=== PATIENT | male | born 1945 | race Caucasian/White ===

== ENCOUNTER 2021-05-16 17:37 | Emergency (ER) | payer MEDICARE, SELFPAY ==
--- NOTE | ~2021-05-16 | CT_ITS ---
EXAMINATION: CT cervical spine wo con DATE: 05/16/2021 20:14 INDICATION: Neck pain. Head injury. TECHNIQUE: Computed tomography (CT) of the cervical spine was performed without intravenous contrast. Automated exposure control and iterative reconstruction technique were employed. The dose-length pro duct was 352.58 mGy-cm. COMPARISON: None FINDINGS: There is 5 degrees levocurvature of cervical spine. Vertebral body heights and intervertebr al disc heights are normal. The following disc levels are specifically discussed: C2-C3: There is no uncovertebral joint osteoarthritis. There is severe bilateral facet joint osteoart hritis. There is no neural foraminal stenosis. There is no central canal stenosis. C3-C4: There is mild bilateral uncovertebral joint osteoarthritis. There is severe bilateral facet angela int osteoarthritis. There is no neural foraminal stenosis. There is no central canal stenosis. C4-C5: There is no uncovertebral joint osteoarthritis. There is moderate right and mild left facet angela int osteoarthritis. There is no neural foraminal stenosis. There is no central canal stenosis. C5-C6: There is no uncovertebral joint osteoarthritis. There is mild right and moderate left facet angela int osteoarthritis. There is no neural foraminal stenosis. There is no central canal stenosis. C6-C7: There is no uncovertebral joint osteoarthritis. There is mild bilateral facet joint osteoarthr itis. There is no neural foraminal stenosis. There is no central canal stenosis. C7-T1: There is no uncovertebral joint osteoarthritis. There is mild bilateral facet joint osteoarthr itis. There is no neural foraminal stenosis. There is no central canal stenosis. IMPRESSION: 1. No fracture. 2. Mild cervical spondylosis. Reviewed, dictated and finalized at location A. LY RESOURCE MANAGEMENT PROFESSOR
--- NOTE | ~2021-05-16 | CT_ITS ---
EXAMINATION: CT brain wo con DATE: 05/16/2021 20:14 INDICATION: Headache. Neck pain. Head injury. TECHNIQUE: Computed tomography (CT) of the head was performed without intravenous contrast. The mA wa s adjusted according to patient size. Iterative reconstruction technique was employed. The dose-lengt h product was 605.33 mGy-cm. COMPARISON: None FINDINGS: There is no intracranial hemorrhage, acute infarction, or abnormal intracranial mass lesion . There are scattered areas of low attenuation in the cerebral white matter. The ventricles are gisele l in size. There is mild mucosal thickening in the paranasal sinuses. The mastoid air cells are gisele l. The orbits are normal. There is posterior scalp soft tissue swelling. IMPRESSION: 1. Mild nonspecific cerebral white matter disease, which likely represents chronic small vessel ische abdon disease. Reviewed, dictated and finalized at location A. LE WIRE INSERTER IMPRESSION: 1. Mild nonspecific cerebral white matter disease, which likely represents chrome polisher ivana small vessel ischemic disease.
[2021-05-16 17:47] VITALS: BP 169/70; PULSE 66; RESP 18; TEMP 36.3; O2SAT 98
--- NOTE | 2021-05-16 19:26 | PC.NURSE ---
Pt wearing c-collar in [place] to intake desk. Asks How can I sign myself out? This RN urged pt to stay. Pt reported he had ride waiting on him in parking lot. IV placed by EMS en route removed by this RN with catheter intact. gauze and tape dressing applied. no active bleeding. pt a/o x 4 with clear speech. Seen leaving ER wr [place] toward ER [address] without assistance.
--- NOTE | 2021-05-16 19:43 | PC.NURSE ---
Pt brought back to wr from parking area, as pt unable to locate his son. This RN called number listed on contact sheet for son, who reports he just left briefly to feed his dogs, but will be returning in approx. 5 minutes. He reports he will not take pt home but will speak with his dad when he gets back to ED. Pt returned to tracker board. Currently sitting in ED wr and does not want to stay, but son will not take him home.
--- NOTE | 2021-05-16 20:02 | PC.NURSE ---
Son left pt in ED wr, asked that staff call him when pt gets an ED bed assignment. Pt currently to imaging.
--- NOTE | 2021-05-16 20:15 | ED.FALL ---
HPI - Fall General Chief Complaint: Fall Stated Complaint: fall, head inj, vomited x1 Time Seen by Provider: 05/16/21 19:55 Source: patient History of Present Illness HPI Narrative: Patient presents after a ground-level fall. Patient reports he was picking up a package outside. Reports it was a large package and he tripped over it as he has some underlying peripheral neuropathy in his baseline unsteady gait. Reports he fell backwards onto his head denies any loss of consciousness reports his primary area of pain in his neck. Denies any focal numbness or weakness denies any change in vision denies use of any blood thinners. Does report one episode of emesis but is feeling improved. Review of Systems Review of Systems: CONSTITUTIONAL: Denies fever, chills, or sweats. EYES: Denies visual changes, redness, or discharge. ENT: Denies rhinorrhea, congestion, sore throat, or otalgia. CARDIOVASCULAR: Denies chest pain, palpitations, or edema. RESPIRATORY: Denies cough or dyspnea. GASTROINTESTINAL: Denies abdominal pain, nausea, vomiting, or diarrhea. GENITOURINARY: Denies dysuria or hematuria. SKIN: Denies rash or itching. MUSCULOSKELETAL: Denies back pain, joint pain, or myalgia. NEUROLOGIC: Denies headache, numbness, dizziness, or weakness. PSYCHIATRIC: Denies anxiety or depression. All systems reviewed & are unremarkable except as noted in HPI and below PMFSH Past Medical History Medical History (Updated 05/16/21 @ 20:30 by Ayush Woodruff MD) Neuropathy Social History Social History (Updated 05/16/21 @ 20:17 by Ayush Woodruff MD) Substance use: never Exam Narrative: GENERAL: Well-appearing, well-nourished, and in no acute distress. HEAD: Normocephalic, atraumatic. EYES: PERRLA and EOMI. ENT: Nares clear, no rhinorrhea or epistaxis. Mucous membranes moist, no fractured teeth NECK: Supple. No masses. Moderate diffuse neck pain CHEST: Clear to auscultation. No respiratory distress. No wheezes rales or rhonchi HEART: Regular rate and rhythm. No murmur heard. Normal peripheral pulses. ABDOMEN: Soft, nontender, nondistended, normal active bowel sounds. EXTREMITIES: Normal range of motion. No edema. SKIN: Warm, dry, no rash. NEURO: Cranial nerves II through XII are intact patient has 5 out of 5 strength in all extremities sensation intact to light touch in all extremities alert and oriented x3. PSYCH: Normal mood and affect. Course Reevaluation(s) Reevaluation #1: Patient is resting comfortably results reviewed with patient. Patient is comfortable with the outpatient plan. Date: 05/16/21 Time: 20:28 Vital Signs Vital signs: Vital Signs Temperature 36.3 C L 05/16/21 17:47 Pulse Rate 66 05/16/21 17:47 Respiratory Rate 18 05/16/21 17:47 Blood Pressure 169/70 H 05/16/21 17:47 Pulse Oximetry 98 05/16/21 17:47 Temperature 37.1 C 05/16/21 20:30 Pulse Rate 73 05/16/21 20:30 Respiratory Rate 16 05/16/21 20:30 Blood Pressure 133/55 L 05/16/21 20:30 Pulse Oximetry 100 05/16/21 20:30 MDM - Fall MDM Narrative Medical decision making narrative: H&P as above, vss, pt looks clinically well, exam with superficial abrasion, imaging without acute process, additional labs/img considered, symptomatic relief available as needed, on reevaluation pt continues to looks clinically well. Suspect mechanical fall and closed head injury, dns intracranial hemorrhage, fracture, cord compromise. plan to tx/monitor as op w/ pcm f/u findings/plan discussed with pt, pt agree/comfortable with plan, return precautions given Discharge Plan Discharge Clinical Impression: Acute neck pain Fall Qualifiers: Encounter type: initial encounter Qualified Code(s): W19.XXXA - Unspecified fall, initial encounter Closed head injury Qualifiers: Encounter type: initial encounter Qualified Code(s): S09.90XA - Unspecified injury of head, initial encounter Patient Disposition: Home, Self-Care Condition: Improved I
[2021-05-16 20:30] VITALS: BP 133/55; PULSE 73; RESP 16; TEMP 37.1; O2SAT 100
--- NOTE | 2021-05-16 20:45 | PC.NURSE ---
C-collar removed by Dr. Woodruff. All d/c instructions explained to pt by ED MD. This RN called pt's son, who arrived from waiting in parking lot. This RN explained negative imaging results to pt's son, and pt escorted to family vehicle in without difficulty.
== END 2021-05-16 20:45 | disposition home or self-care (01) ==
PROVIDERS: Emergency Provider Emergency Medicine; PCP Family Medicine
DX: S09.90XA Unspecified injury of head, initial encounter (principal); M54.2 Cervicalgia; G62.9 Polyneuropathy, unspecified; W01.0XXA Fall on same level from slipping, tripping and stumbling without subsequent striking against object, initial encounter
CPT/HCPCS: 70450; 72125; 99284; L0140

== ENCOUNTER 2022-03-28 16:59 | Outpatient (CLI) | payer MEDICARE, SELFPAY ==
--- NOTE | ~2022-03-28 | CT_ITS ---
EXAMINATION: CT brain without and with contrast, CT orbit bilateral with contrast DATE: 03/28/2022 18:07 (accession [id number]), 03/28/2022 18:04 (accession [id number]) INDICATION: Papilledema. Vision loss. TECHNIQUE: Computed tomography (CT) of the head was performed without intravenous contrast. CT of the head and orbits was performed with 100 mL Omnipaque 350 intravenous contrast. Automated exposure con trol and iterative reconstruction technique were employed. The dose-length product was 605.33 (access ion [id number]), 128.94 (accession [id number]) mGy-cm. COMPARISON: CT brain 05/16/2021. FINDINGS: BRAIN: No acute intracranial hemorrhage or extra-axial fluid collection. No hydrocephalus, mass, or herniation. No abnormal enhancing lesion No acute ischemic infarct detected. Unremarkable dural venous sinus attenuation. No acute osseous abnormality. Small retention cyst or polyp in a poorly pneumatized inferior frontal sinus, the remaining visualize d paranasal sinuses and mastoid air cells are clear. Mild atrophy and chronic white matter change. Atherosclerotic intracranial calcification. ORBITS: Soft Tissues: No significant superficial soft tissue swelling. Facial bones: No evidence of an acute fracture in the visualized facial bones. Orbits: No evidence of an acute fracture. Bilateral lens replacements. The globes are intact. The s oft tissue planes of the orbits are maintained. Paranasal Sinuses: Poorly pneumatized frontal sinuses. Small frontal retention cyst or polyp. Foreign Bodies: No evidence of radiopaque foreign bodies. IMPRESSION: No acute intracranial process. Bilateral lens replacements, otherwise normal CT orbit findings. Reviewed, dictated and finalized at location K. IMPRESSION: No acute intracranial process. Bilateral lens replacements, otherwise normal CT orbit findings.
[2022-03-28 17:51] LABS: Estimated Glomerular Filt Rate 42
== END 2022-03-28 17:00 | disposition home or self-care (01) ==
PROVIDERS: PCP Family Medicine; Visit Provider Ophthalmology
DX: H47.10 Unspecified papilledema (principal)
CPT/HCPCS: 70470; 70481; Q9967

== ENCOUNTER 2022-03-29 11:24 | Outpatient (CLI) | payer MEDICARE, SELFPAY ==
[2022-03-29 12:14] LABS: Erythrocyte Sedimentation Rate 21 mm/hr (0-20)
[2022-03-29 12:17] LABS: CRP < 0.5 mg/dL (<1.0)
== END 2022-03-29 11:25 | disposition home or self-care (01) ==
PROVIDERS: PCP Family Medicine; Visit Provider Ophthalmology
DX: H47.10 Unspecified papilledema (principal)
CPT/HCPCS: 36415; 85652; 86140

== ENCOUNTER 2022-06-10 17:22 | Inpatient (IN) | payer MEDICARE, SELFPAY ==
[2022-06-10] VITALS (10 sets, daily range): BP systolic 106–139; BP diastolic 49–77; PULSE 77–114; RESP 16–39; TEMP 36.3–36.4; O2SAT 93–100; BMI 25.0
--- NOTE | ~2022-06-10 | XR_ITS ---
EXAMINATION: XR chest 2V DATE: 06/10/2022 18:10 INDICATION: Shortness of breath. TECHNIQUE: Frontal and lateral views of the chest were obtained. COMPARISON: None. FINDINGS: There are airspace opacities in the mid and lower lung zones. No pleural effusion or pneumo thorax. The heart size is normal. IMPRESSION: 1. Airspace opacities in the mid and lower lung zones, consistent with pneumonia versus pulmonary herbert ma. Reviewed, dictated and finalized at location A. STOS HAZARD ABATEMENT WORKER IMPRESSION: 1. Airspace opacities in the mid and lower lung zones, consistent with pneumoni a versus pulmonary edema.
--- NOTE | ~2022-06-10 | US_ITS ---
EXAMINATION: US renal BI DATE: 06/12/2022 15:01 INDICATION: Acute kidney injury rule out hydronephrosis TECHNIQUE: Multiple grayscale and Doppler ultrasound images of the kidneys were obtained. COMPARISON: None. FINDINGS: The right kidney measures 13.1 x 6.2 x 6.1 cm. The left kidney measures 12.8 x 5.8 x 6.5 cm. The kidn eys demonstrate normal parenchymal echogenicity. Mild cortical thinning and scarring. There is no hyd ronephrosis. The bladder is decompressed by a Enriquez catheter. IMPRESSION: Mild bilateral cortical thinning and scarring, otherwise unremarkable renal sonogram findings. Reviewed, dictated and finalized at location K. T FURNACE CHECKER IMPRESSION: Mild bilateral cortical thinning and scarring, otherwise unremarkable renal son ogram findings.
--- NOTE | ~2022-06-10 | CT_ITS ---
EXAMINATION: CT brain wo con DATE: 06/11/2022 09:37 INDICATION: Encephalopathy. TECHNIQUE: Computed tomography (CT) of the head was performed without intravenous contrast. The mA wa s adjusted according to patient size. Iterative reconstruction technique was employed. The dose-lengt h product was 605.33 mGy-cm. COMPARISON: Head CT 03/28/2022 FINDINGS: There are scattered areas of low attenuation in the cerebral white matter. There is no intr acranial hemorrhage, acute infarction, or abnormal intracranial mass lesion. The ventricles are gisele l in size. There is mucosal thickening in the paranasal sinuses. There are likely changes of ocular l ens replacement surgeries. The mastoid air cells are normal. IMPRESSION: 1. Stable mild nonspecific cerebral white matter disease, which likely represents chronic small vesse l ischemic disease. Reviewed, dictated and finalized at location A. QUALITY IMPRESSION: 1. Stable mild nonspecific cerebral white matter disease, which likely represen ts chronic small vessel ischemic disease.
--- NOTE | ~2022-06-10 | CT_ITS ---
EXAMINATION: CTA chest PE protocol DATE: 06/10/2022 20:32 INDICATION: Shortness of breath. TECHNIQUE: Computed tomography angiography (CTA) of the chest was performed with 100 mL Omnipaque-350 intravenous contrast timed to evaluate the pulmonary arteries. Coronal maximum intensity projection 3D-reconstructions were created by the technologist. Automated exposure control and iterative reconst ruction technique were employed. The dose-length product was 337.91 mGy-cm. COMPARISON: Chest 2 views 06/10/2022 FINDINGS: There are small pleural effusions. There is diffuse smooth septal thickening in the lungs. There are patchy groundglass opacities in all lobes. There is left ventricular enlargement of the hea rt. There are coronary artery calcifications. No pericardial effusion. There is no pulmonary embolus. There is mild mediastinal and bilateral hilar lymphadenopathy. There are bridging endplate osteophyt es at multiple levels in the spine, consistent with diffuse idiopathic skeletal hyperostosis (DISH). IMPRESSION: 1. No pulmonary embolus. 2. Diffuse lung disease, consistent with moderate pulmonary edema without or with superimposed pneumo leanna. 3. Small pleural effusions. 4. Mild mediastinal and bilateral hilar lymphadenopathy, likely reactive. 5. Left ventricular enlargement of the heart. Reviewed, dictated and finalized at location A. LAY AND BANNER DESIGNER IMPRESSION: 1. No pulmonary embolus. 2. Diffuse lung disease, consistent with moderate pulmonary edema without or wi th superimposed pneumonia. 3. Small pleural effusions. 4. Mild mediastinal and bilateral hilar lymphadenopathy, likely reactive. 5. Left ventricular enlargement of the heart.
--- NOTE | ~2022-06-10 | XR_ITS ---
EXAMINATION: XR chest 1V portable DATE: 06/12/2022 08:07 INDICATION: Pneumonia. TECHNIQUE: A single frontal view of the chest was obtained. COMPARISON: Chest 2 views 06/10/2022, chest CT 06/10/2022 FINDINGS: There are interstitial and airspace opacities in all lung zones with a lower lung predomina nce. No pleural effusion or pneumothorax. The heart size is normal. IMPRESSION: 1. Worsened diffuse lung disease, likely moderate pulmonary edema. Reviewed, dictated and finalized at location A. OPERATIONS MANAGER
--- NOTE | 2022-06-10 17:33 | ECG_ITS ---
Measurements Intervals [place] Rate: 78 P: 55 ND: 151 QRS: -4 QRSD: 78 T: 129 QT: 358 QTc: 408 Interpretive Statements REDUCED ECG QUALITY BECAUSE OF MOTION ARTIFACT SINUS RHYTHM CANNOT RULE OUT PREVIOUS ANTEROSEPTAL NM NONSPECIFIC T-WAVE ABNORMALITY ABNORMAL ECG NO PREVIOUS ECG AVAILABLE FOR COMPARISON Electronically Signed On 06-11-2022 9:42:13 MANAGER CLINICAL PHARMACY by Chandrakant Conway M.D.
[2022-06-10 17:38] LABS: Glucose Point of Care 456 mg/dl (65-105)
[2022-06-10 17:52] LABS: Basophils Percent Auto 0.1 % (0.2-1.2); Hematocrit 36.4 % (42.0-52.0); Immature Granulocyte Absolute 0.05 K/mm3 (0.00-0.031); Immature Granulocyte Percent A 0.7 % (0-0.5); Lymphocytes Absolute Auto 0.74 K/mm3 (0.9-3.2); Lymphocytes Percent Auto 10.1 % (18.3-44.2); Mean Corpuscular Hemoglobin 28.2 pg (26-34); Mean Corpuscular Volume 85.6 fl (80-100); Mean Platelet Volume 11.8 fl (7.4-10.4); Monocytes Percent Auto 13.8 % (2.6-8.5); Neutrophils Absolute Auto 5.5 K/mm3 (1.3-6.7); Neutrophils Percent Auto 75.3 % (45.5-73.1); Platelet Count Result 213 k/mm3 (150-375); Red Blood Count 4.25 M/mm3 (4.6-6.20); Red Cell Distribution Width 13.4 % (11.5-14.5); White Blood Count 7.3 K/mm3 (4.5-10.0)
[2022-06-10 18:06] LABS: Alanine Aminotransferase 35 U/L (6-50); Alkaline Phosphatase 84 U/L (38-126); Anion Gap 21 mmol/L (8-16); Aspartate Amino Transferase 58 U/L (17-59); Bilirubin,Total 0.7 mg/dL (0.2-1.3); Blood Urea Nitrogen 62 mg/dL (9-20); Calcium 8.5 mg/dL (8.4-10.2); Carbon Dioxide 15 mmol/L (22-30); Chloride 94 mmol/L (98-107); Estimated CRCL calculation 43 ml/min; Estimated Glomerular Filt Rate 31; Glucose 528 mg/dL (65-110); Potassium 5.3 mmol/L (3.4-5.0); Sodium 130 mmol/L (137-145)
[2022-06-10 18:15] LABS: Alveolar/Arterial O2 Gradient 50.9 mmHg; Base Excess ABG -11.4 mEq/l (+/-2.0); Carboxyhemoglobin 0.4 % THb (0-2.0); Fractional Inspired Oxygen 21 %; HCO3 ABG 11.8 mEq/l (22.0-26.0); Methemoglobin ABG 0.2 %THb (0-1.5); Oxygen Content ABG 16.4 %vol (16.0-22.0); Oxygen Saturation ABG 94.7 % (95.0-100.0); Oxyhemoglobin 92.8 % THb (90.0-100.0); PO2 ABG 73.4 mmHg (80.0-100.0); Reduced Hemoglobin 6.6 %THb (0-5.0); Total Hemoglobin 12.5 g/dL (12.0-18.0); pH ABG 7.365 (7.350-7.450)
[2022-06-10 18:17] LABS: Device ROOM AIR; Modified Allen's Test Pass; PCO2 ABG 21.2 mmHg (35.0-45.0); Site Drawn LEFT RADIAL
[2022-06-10 18:18] LABS: Magnesium 2.3 mg/dL (1.6-2.3); Phosphorus 4.9 mg/dL (2.5-4.5)
--- NOTE | 2022-06-10 18:21 | ED.WEAKNESS ---
HPI - Weakness General Chief complaint: Weakness <Meghan Pak PA-C - Last Filed: 06/10/22 21:55> Stated complaint: COVID+, SOB <RICK Booker Last Filed: 06/10/22 21:55> Time Seen by Provider: 06/10/22 17:53 <Meghan Pak PA-C - Last Filed: 06/10/22 21:55> Source: patient <RICK Booker Last Filed: 06/10/22 21:55> Mode of arrival: wheelchair <RICK Booker Last Filed: 06/10/22 21:55> Limitations: other (Poor historian) <RICK Booker Last Filed: 06/10/22 21:55> History of Present Illness HPI Narrative: This is a 77-year-old male that presents to the emergency department for generalized weakness. Reports he was diagnosed with COVID 3 days ago. He has had fever, cough, congestion, and sore throat. His family brought him in for evaluation today due to increased lethargy and decreased p.o. intake. He reports he has not had a COVID-vaccine. He was not started on any medications for COVID. Reports shortness of breath. Denies chest pain or lower extremity edema. <Meghan Pak PA-C - Last Filed: 06/10/22 21:55> Related Data Allergies/Adverse reactions: Allergies Allergy/AdvReac Type Severity Reaction Status Date / Time No Known Allergies Allergy Verified 06/10/22 18:27 <Meghan Pak PA-C - Last Filed: 06/10/22 21:55> Review of Systems Review of Systems: CONSTITUTIONAL: Denies fever EYES: Denies redness, or discharge. ENT: Reports rhinorrhea, congestion, sore throat CARDIOVASCULAR: Denies chest pain, or edema. RESPIRATORY: Reports cough and dyspnea. GASTROINTESTINAL: Denies nausea, vomiting, or diarrhea. MUSCULOSKELETAL: Reports myalgia. NEUROLOGIC: Reports generalized weakness. <RICK Booker Last Filed: 06/10/22 21:55> All systems reviewed & are unremarkable except as noted in HPI and below <Meghan Pak PA-C - Last Filed: 06/10/22 21:55> [facility] Past Medical History Medical History: Medical History (Updated 06/10/22 @ 21:44 by Meghan Pak PA-C) History of diabetes mellitus History of hyperlipidemia Neuropathy <Meghan Pak PA-C - Last Filed: 06/10/22 21:55> Social History Social History: Social History (Updated 05/16/21 @ 20:17 by Ayush Woodruff MD) Substance use: never <Meghan Pak PA-C - Last Filed: 06/10/22 21:55> Exam Narrative: GENERAL: Ill-appearing, tachypneic HEAD: Normocephalic, atraumatic. EYES: PERRLA and EOMI. ENT: Nares clear, no rhinorrhea or epistaxis. Mucous membranes dry. Oropharynx without tonsillar hypertrophy exudate or other lesions. NECK: Supple. No adenopathy or masses. CHEST: Tachypneic. Rales at the lung bases. No respiratory distress. No wheezes or rhonchi HEART: Regular rate and rhythm. No murmur heard. Normal peripheral pulses. ABDOMEN: Soft, nontender, nondistended, normal active bowel sounds. EXTREMITIES: Normal range of motion. No edema. SKIN: Warm, dry, no rash. NEURO: No focal deficits. Alert and oriented x3. PSYCH: Normal mood and affect <Meghan Pak PA-C - Last Filed: 06/10/22 21:55> Course SENIOR MARKETING COORDINATOR/PA Physician Supervision For this patient encounter, I reviewed the SENIOR MARKETING COORDINATOR or PA documentation, treatment plan, and medical decision making; and I had [id number] time with this patient. GENERAL: Ill-appearing, well-nourished, and in no acute distress. HEAD: Normocephalic, atraumatic. ENT: Mucous membranes moist. CHEST: Clear to auscultation. No respiratory distress. Frequent coughing. HEART: Regular rate and rhythm. Normal peripheral pulses. ABDOMEN: Soft, nontender, nondistended. EXTREMITIES: Normal range of motion. No edema. SKIN: Warm, dry, no rash. NEURO: Alert and oriented x3. PSYCH: Normal mood and affect. Admit to hospitalist ICU for DKA and COVID. Will start on insulin drip. <Kolby King MD - Last Filed: 06/10/22 21:53> Consultations Consultation #1: Spoke with Dr. Snider about teoen
[2022-06-10 18:24] LABS: INR 1.1; Partial Thromboplastin Time 29.6 SECONDS (22.3-36.8); Prothrombin Time 13.8 Seconds (11.1-14.7)
[2022-06-10] MEDS: INSULIN HUMAN REGULAR (*BKC) 100 UNITS/ML 12 UNITS IV PUSH (18:29)
[2022-06-10] MEDS: SODIUM CHLORIDE 0.9% IV 1,000 ML 999 ML IV CONT (18:29)
[2022-06-10 18:51] LABS: Beta-Hydroxybutyrate/Acetoacetate 8.13 mmol/L (0.02-0.27)
[2022-06-10 19:19] LABS: Glucose Point of Care 378 mg/dl (65-105)
[2022-06-10 19:37] LABS: Hemoglobin A1C 11.8 % (<5.7)
[2022-06-10 19:38] LABS: CRP 8.7 mg/dL (<1.0)
[2022-06-10 19:46] LABS: NT Pro B Type Natriuretic Pept > 35000 pg/mL (5-100)
[2022-06-10 19:51] LABS: Lactic Acid Reflex 2.4 mmol/L (0.7-2.0)
[2022-06-10 20:02] LABS: Influenza A QL RT-PCR Negative (Negative); Influenza B QL RT-PCR Negative (Negative); SARS-CoV-2 RNA PCR Positive
[2022-06-10 20:06] LABS: D Dimer 1.94 ug/mL (<0.48)
[2022-06-10 20:16] LABS: Add Urine Microscopic? YES; Appearance Urine Clear (Clear); Bilirubin Urine 1+ (Negative); Blood Urine 1+ (Negative); Color Urine Yellow (Yellow); Glucose Urine UA 3+ mg/dL (Negative); Ketones Urine 1+ mg/dL (Negative); Leukocyte Esterase Ur Negative LEU/UL (Negative); Nitrate Urine Negative (Negative); Protein Urine 2+ mg/dL (Negative); Specific Grav Ur 1.025 (1.001-1.035); Urobilinogen Urine 0.2 mg/dL (<2.0)
[2022-06-10 20:25] LABS: Squamous Epithelial Cell Urine Rare /hpf (Few); WBC Urine 0-3 /hpf
[2022-06-10 20:58] LABS: Glucose Point of Care 297 mg/dl (65-105)
--- NOTE | 2022-06-10 21:07 | PM.IMHP ---
H&P: HPI History of Present Illness Date/Time: 06/10/22 21:07 Chief Complaint: Weakness Narrative: Patient is a 77-year-old male with past medical history of type 2 diabetes on metformin who presents to ED with complaints of generalized weakness after being diagnosed with COVID-19 3 days ago. Patient lives with his in is fairly independent. He has very poor health literacy and does not know about his medications or medical conditions. All he knows is he takes metformin for diabetes. He was not vaccinated for COVID-19. He is unable to discuss his parents medical conditions as well. History is very limited. We discussed code status and patient expressed wishes for do not resuscitate/do not intubate. In the ED: Patient is found to be in DKA glucose 528, anion gap 21, potassium 5.3, sodium 130. COVID-19 positive on PCR. BNP was elevated greater than 35,000. Patient denies any history of heart failure. Patient had O2 saturation 95% on room air. With patient being in DKA he was started on insulin drip given 12 units of regular insulin, 1 L fluid bolus. He will be admitted to the ICU for observation for DKA secondary to COVID-19. Review of Systems Review of Systems: Constitutional: No Fever, No Chills, No Night Sweats, endorses generalized weakness ENT/Mouth: No Hearing Changes, No Ear Pain, No Nasal Congestion, No Sinus Pain, No Hoarseness, No sore throat, No Rhinorrhea, No Swallowing Difficulty Eyes: No Eye Pain, No Redness, No Vision Changes Cardiovascular: No Chest Pain, No Palpitations, No Dyspnea on Exertion, No Orthopnea, No Claudication, No Edema Respiratory: Endorses dry cough Gastrointestinal: No Nausea, No Vomiting, No Diarrhea, No Constipation, No Abdominal Pain, No Heartburn, No Hematochezia, No Melena Genitourinary: No Dysuria, No Urinary Frequency, No Hematuria, No Urinary Incontinence, No Urgency Musculoskeletal: No Arthralgias, No Myalgias, No Joint Swelling, No Joint Stiffness, No Back Pain Skin: No Skin Lesions, No Pruritis, No Hair Changes Neuro: No Weakness, No Numbness, No Paresthesias, No Loss of Consciousness, No Syncope, No Dizziness, No Headache Psych: No Anxiety/Panic, No Depression, No Insomnia Heme: No Bruising, No Bleeding Lymph: No Adenopathy Endocrine: No Polyuria, No Polydipsia, No Temperature Intolerance [facility] Past Medical History Medical History History of diabetes mellitus History of hyperlipidemia Neuropathy Social History Social History (Updated 06/10/22 @ 22:28 by Damián Ureña DO) Social History: Lives with Smoking status: Never smoker Alcohol intake: never Substance use: never Meds Home Medications and Allergies Home Medications Medication Instructions Recorded Confirmed Type citalopram 40 mg tablet 40 mg PO DAILY 06/10/22 06/10/22 History gabapentin 800 mg tablet 800 mg PO TID 06/10/22 06/10/22 History glipizide 10 mg tablet 10 mg PO BID 06/10/22 06/10/22 History metformin 1,000 mg tablet 1,000 mg PO BID 06/10/22 06/10/22 History simvastatin 80 mg tablet 80 mg PO DAILY 06/10/22 06/10/22 History Allergies Allergy/AdvReac Type Severity Reaction Status Date / Time No Known Allergies Allergy Verified 06/10/22 18:27 Vital Signs Vital Signs - 24 hr 06/10/22 17:27 06/10/22 18:38 06/10/22 18:25 Temperature 36.3 C L Pulse Rate 79 83 77 Respiratory Rate 16 34 H Blood Pressure 139/61 Pulse Oximetry 100 98 Oxygen Delivery Room Air 06/10/22 18:30 06/10/22 18:34 06/10/22 18:45 Temperature Pulse Rate 78 77 114 H Respiratory Rate 39 H 38 H 36 H Blood Pressure 136/66 Pulse Oximetry 98 98 93 Oxygen Delivery 06/10/22 18:46 Temperature Pulse Rate 89 Respiratory Rate 35 H Blood Pressure 120/77 Pulse Oximetry 95 Oxygen Delivery Exam Narrative: - GENERAL: Pleasant elderly male in no acute distress. - EYES: EOMI. Anicteric. - HENT: Dry oral
[2022-06-10] MEDS: INSULIN HUMAN REGULAR (*BKC) 100 UNITS in SODIUM CHLORIDE 0.9% IV 99 ML IV CONT (21:37)
[2022-06-10 21:54] LABS: Anion Gap 17 mmol/L (8-16); Blood Urea Nitrogen 62 mg/dL (9-20); Calcium 7.7 mg/dL (8.4-10.2); Carbon Dioxide 15 mmol/L (22-30); Chloride 97 mmol/L (98-107); Estimated CRCL calculation 47 ml/min; Estimated Glomerular Filt Rate 35; Glucose 276 mg/dL (65-110); Potassium 4.4 mmol/L (3.4-5.0); Sodium 129 mmol/L (137-145)
[2022-06-10] MEDS: SODIUM CHLORIDE 0.9% IV 1,000 ML 100 ML IV CONT (22:19)
--- NOTE | 2022-06-10 22:20 | ADMGEN ---
This patient, José Edwards, was admitted to Intensive Care Unit-11. Patient/family oriented to hospital policies and general routines including ID bracelet, bed and alarms, visiting hours, pain management, procedures, bathroom and other care routines, personal items, smoking policy, room service/diet, and visiting hours. Information on how to activate the Rapid Response Team has been discussed. Patient/Family are encouraged to report perceived risks to care and to ask questions if they do not understand what they are told or what they should do.
[2022-06-10] MEDS: SODIUM CHLORIDE 0.9% IV 1,000 ML 150 ML IV CONT (22:30)
[2022-06-10 22:40] LABS: Reflex Lactic Acid Yes or No Add Lactic
[2022-06-10 23:10] LABS: Glucose Point of Care 262 mg/dl (65-105)
[2022-06-10 23:10] LABS: Glucose Point of Care 295 mg/dl (65-105)
[2022-06-10 23:14] LABS: Magnesium 2.3 mg/dL (1.6-2.3); Phosphorus 3.4 mg/dL (2.5-4.5)
[2022-06-10 23:14] LABS: Lactic Acid 2.2 mmol/L (0.7-2.0)
[2022-06-10] MEDS: KCL 20 MEQ/D5/0.45% SOD CHL 1,000 ML 150 ML IV CONT (23:57)
[2022-06-11] VITALS (37 sets, daily range): BP systolic 90–136; BP diastolic 50–79; PULSE 58–132; RESP 16–37; TEMP 36.7–39.2; O2SAT 77–100
--- NOTE | 2022-06-11 | ECHO_ITS ---
Patient Info Name: José Edwards Age: 77 years : 1945 Gender: Male Ht: 69 in Wt: 159 lbs BSA: 1.88 m2 HR: 91 bpm BP: 120 / 68 mmHg Heart Rhythm: Sinus Rhythm Technical Quality: Fair Exam Date: 06/11/2022 9:58 AM Exam Location: [facility] Room: ICU 11 Patient Status: Inpatient Admit Date: 06/10/2022 Staff Ordering Physician: Damián Ureña DO Forms Builder: Kristi Cunha RDCS Attending Provider: Damián Ureña DO Referring Physician: Adelita MULLIGAN; Exam Type: CA echo dop color flow w con Study Info Indications - covid elevated bnp pleural effusion Complete two-dimensional, color flow and Doppler transthoracic echocardiogram is performed. Contrast/Agitated Saline Contrast/Ag. Saline: Definity Amount: 2.00 ml Administered By: Kristi Cunha [facility] Existing IV Access: Yes IV Access Condition: patent with no signs of infiltration Summary 1. Complete two-dimensional, color flow and Doppler transthoracic echocardiogram is performed. 2. Technically challenging exam because of obesity, definity contrast used to improve the exam. 3. Mild left ventricular enlargement with relatively severe global systolic dysfunction. 4. Trivial amount of mitral regurgitation. 5. Preserved right ventricular function. Left Ventricle Left ventricular chamber dimension is mildly enlarged. Left ventricular systolic function is severely reduced, estimated at 20-25%. The left ventricular diastolic function is grade I diastolic dysfunction. Right Ventricle Right ventricular chamber dimension is normal. Left Atria Left atrial chamber dimension is normal. Right Atria Right atrial chamber dimension is normal. Aortic Valve The aortic valve is trileaflet. There is mild aortic valve sclerosis. Pulmonic Valve The pulmonic valve is not well visualized. Mitral Valve The mitral valve has normal leaflets. There is trace mitral valve regurgitation. Tricuspid Valve The tricuspid valve leaflets are normal. Pericardium/Pleural The pericardium appears normal. Aorta The aortic root size at the sinus of Valsalva is normal. Left Ventricular Outflow Tract Name Value Normal LVOT 2D LVOT Diameter 2.03 cm LVOT Doppler LVOT Peak Gradient 5 mmHg LVOT Mean Gradient 3 mmHg LVOT VTI 18.81 cm LVOT VTI/AV VTI Ratio 0.87 LVOT Stroke Volume 60.84 ml LVOT CO 15.35 l/min LVOT CI 8.17 L/min/m2 Pulmonic Valve Name Value Normal PV Doppler PV Peak Gradient 36 mmHg Mitral Valve Name
[2022-06-11 00:04] LABS: Glucose Point of Care 179 mg/dl (65-105)
[2022-06-11 01:06] LABS: Glucose Point of Care 133 mg/dl (65-105)
[2022-06-11 01:56] LABS: Glucose Point of Care 128 mg/dl (65-105)
[2022-06-11 02:04] LABS: Anion Gap 10 mmol/L (8-16); Blood Urea Nitrogen 65 mg/dL (9-20); Calcium 7.8 mg/dL (8.4-10.2); Carbon Dioxide 22 mmol/L (22-30); Chloride 99 mmol/L (98-107); Estimated CRCL calculation 30 ml/min; Estimated Glomerular Filt Rate 35; Glucose 117 mg/dL (65-110); Potassium 4.2 mmol/L (3.4-5.0); Sodium 131 mmol/L (137-145)
[2022-06-11 03:03] LABS: Glucose Point of Care 138 mg/dl (65-105)
[2022-06-11 04:08] LABS: Glucose Point of Care 137 mg/dl (65-105)
[2022-06-11 04:31] LABS: Basophils Percent Auto 0.3 % (0.2-1.2); Hematocrit 33.3 % (42.0-52.0); Hemoglobin 11.1 g/dL (14.0-18.0); Immature Granulocyte Absolute 0.05 K/mm3 (0.00-0.031); Immature Granulocyte Percent A 0.7 % (0-0.5); Lymphocytes Absolute Auto 1.04 K/mm3 (0.9-3.2); Lymphocytes Percent Auto 14.2 % (18.3-44.2); Mean Corpuscular HGB Conc 33.3 g/dl (32-36); Mean Corpuscular Hemoglobin 27.8 pg (26-34); Mean Corpuscular Volume 83.3 fl (80-100); Mean Platelet Volume 11.1 fl (7.4-10.4); Monocytes Absolute Auto 1.2 K/mm3 (0.1-0.6); Monocytes Percent Auto 15.7 % (2.6-8.5); Neutrophils Absolute Auto 5.1 K/mm3 (1.3-6.7); Neutrophils Percent Auto 69.1 % (45.5-73.1); Platelet Count Result 228 k/mm3 (150-375); Red Cell Distribution Width 13.3 % (11.5-14.5); White Blood Count 7.3 K/mm3 (4.5-10.0)
[2022-06-11 05:14] LABS: Thyroid Stimulating Hormone Reflex 0.126 uIU/mL (0.465-4.68)
[2022-06-11 05:42] LABS: Glucose Point of Care 140 mg/dl (65-105)
[2022-06-11 05:42] LABS: Glucose Point of Care 159 mg/dl (65-105)
[2022-06-11 05:47] LABS: Free T4 Free Thyroxine Reflex 2.42 ng/dL (0.78-2.19)
[2022-06-11 06:46] LABS: Anion Gap 9 mmol/L (8-16); Blood Urea Nitrogen 63 mg/dL (9-20); Calcium 7.7 mg/dL (8.4-10.2); Carbon Dioxide 22 mmol/L (22-30); Chloride 100 mmol/L (98-107); Estimated CRCL calculation 28 ml/min; Estimated Glomerular Filt Rate 33; Glucose 155 mg/dL (65-110); Magnesium 2.2 mg/dL (1.6-2.3); Potassium 4.2 mmol/L (3.4-5.0); Sodium 131 mmol/L (137-145)
[2022-06-11] MEDS: KCL 20 MEQ/D5/0.45% SOD CHL 1,000 ML 150 ML IV CONT (06:53)
[2022-06-11 06:56] LABS: Glucose Point of Care 165 mg/dl (65-105)
--- NOTE | 2022-06-11 07:56 | PC.NURSE ---
On morning assessment at 0756. Patient unable to state his name, date of , where he is at or today's date. When asked a question patient responds with okay okay okay repetitively. patient continues to restate questions asked to him over and over again. Patient confused and trying to get out of bed stating he does not know where he is going . Patient seemingly comfortable otherwise with stable hemodynamics. MD updated and made aware of patients neurologic status.
[2022-06-11 08:30] LABS: Glucose Point of Care 138 mg/dl (65-105)
[2022-06-11] MEDS: INSULIN GLARGINE (*BKC) 100 UNITS/ML 30 UNITS SUB-Q (09:11)
[2022-06-11] MEDS: SODIUM CHLORIDE 0.9% IV 500 ML IV CONT (09:13)
--- NOTE | 2022-06-11 09:24 | P.CONIN_ITS ---
Assessment and Plan Assessment and plan (1) DKA (diabetic ketoacidosis): Qualifiers: Diabetes mellitus complication detail: without coma Diabetes mellitus type: type 2 Qualified Code(s): E11.10 - Type 2 diabetes mellitus with ketoacidosis without coma Code(s): E11.10 - Type 2 diabetes mellitus with ketoacidosis without coma Status: Acute Assessment and Plan: Patient presented with generalized weakness after being tested positive for COVID 3 days prior to admission -in the ER patient was found to have a blood sugar of 528, anion gap metabolic acidosis, elevated beta hydroxybutyrate, urine ketones, hemoglobin A1c of 11.8. Patient was diagnosed with DKA, given 1 L IV fluid bolus and started on insulin infusion. -this morning anion gap has closed, patient's blood sugars are much better, will transition to long acting insulin and sliding scale insulin with Accu-Cheks -will stop IV fluids -start diabetic diet (2) 2019 novel coronavirus-infected pneumonia (NCIP): Code(s): U07.1 - COVID-19; J12.82 - Pneumonia due to coronavirus disease 2019 Status: Acute Assessment and Plan: Patient with COVID-19, he has been tested 3 days prior to admission, also was positive for SARS-CoV-2 PCR in the ER on 06/10. -patient is currently on 1-2 L nasal cannula -06/10: CTA chest was done for elevated D-dimers, did not show any pulmonary embolism, diffuse lung disease consistent with moderate pulmonary edema without or with superimposed pneumonia -we do not have Paxlovid, oral medication here in the pharmacy -patient is at risk given his diabetes, age for developing moderate to severe disease. -creatinine clearance is borderline, Remdesivir is contraindicated -continue supportive care -added ceftriaxone and doxycycline for possible pneumonia -added bronchodilators, -continue benzonatate for cough (3) Elevated brain natriuretic peptide (BNP) level: Code(s): R79.89 - Other specified abnormal findings of blood chemistry Status: Acute Assessment and Plan: chest x-ray does show diffuse infiltrates could be related to pulmonary edema, proBNP was > 31989 on admission -echocardiogram has been ordered to for cardiac structural and functional assessment (4) Hyponatremia: Code(s): E87.1 - Hypo-osmolality and hyponatremia Status: Acute Assessment and Plan: Could be related to pseudohyponatremia due to elevated blood sugars, could be related to acute kidney injury -unknown baseline -gradually improving, will continue to monitor (5) Acute kidney injury: Code(s): N17.9 - Acute kidney failure, unspecified Status: Acute Assessment and Plan: Acute kidney injury, creatinine of 2.10 on admission (baseline from 03/2022 is 1.6) -will give additional IV fluid bolus -continue to monitor urine output, electrolytes and renal function -encourage p.o. intake Plan DVT prophylaxis: Lovenox Stress ulcer prophylaxis: Not indicated Nutrition: Will start diabetic diet Code Status: DNR/DNI Critical Care Time Spent: 48 minutes Due to a high probability of clinically significant, life threatening deterioration, the patient required my highest level of preparedness to intervene emergently and I personally spent this critical care time directly and personally managing the patient. This critical care time included obtaining a history; examining the patient; pulse oximetry; ordering and review of studies; arranging urgent treatment with development of a management plan; evaluation of patient's response to treatment; frequent reassessment; and discussions with other provide
--- NOTE | 2022-06-11 09:40 | PC.NURSE ---
This nurse off floor with patient in CT/imaging from 09 to 0940.
[2022-06-11] MEDS: PERFLUTREN LIPID MICROSPHERES 1.5 ML VIAL DILUTED TO 10 ML TOTAL VOLUME IV PUSH (10:20)
[2022-06-11] MEDS: DOXYCYCLINE 100 MG/NS 100 ML 100 MG/100 ML BAG IVPB ×2 (10:57→21:09)
[2022-06-11] MEDS: ENOXAPARIN 40 MG/0.4 ML SYRINGE SUB-Q (10:58)
--- NOTE | 2022-06-11 11:11 | PC.NURSE ---
Patient refusing 0900 scheduled PO medications including simvastatin, Gabapentin, and Celexa. Patient states he does not feel up to taking them. MD updated and made aware. Patient remains confused and continues to ask what am I doing . Nurse to monitor.
[2022-06-11] MEDS: LORazepam INJ (*CRX) 2 MG/ML VIAL 0.25 MG IV PUSH ×2 (11:59→12:07)
--- NOTE | 2022-06-11 12:02 | PC.NURSE ---
At 1135 This nurse went to assess patient. During assessment, patient verbalized that he had to urinate. Bedside urinal and repositioning offered. Patient became very restless and agitated. Patient repetitively saying oh no, oh no, oh no , god help me, god help me, god help me . Patient is disoriented to person, place and time. Patient becoming increasingly agitated. Bladder scanner brought into the room and with assistance of another RN, patient was bladder scanned with >375 mls of residual urine (patient has not voided yet today and bed linens were dry). notified and urethral Enriquez was ordered.
--- NOTE | 2022-06-11 12:09 | PC.NURSE ---
At 1145 This nurse and another nurse at bedside placing urinary Enriquez for retention. Patient increasingly restless, throwing legs out of bed and trying to throw himself out of the bed. Patient continuous to try and get out of bed. When asked where he is going he states I don't know . patient still disoriented to person, place and time. MD notified of increasing agitation.
[2022-06-11 12:21] LABS: Ammonia < 9 umol/L (9-30)
[2022-06-11 12:31] LABS: Anion Gap 12 mmol/L (8-16); Blood Urea Nitrogen 61 mg/dL (9-20); Calcium 7.3 mg/dL (8.4-10.2); Carbon Dioxide 14 mmol/L (22-30); Chloride 102 mmol/L (98-107); Estimated CRCL calculation 26 ml/min; Estimated Glomerular Filt Rate 29; Glucose 125 mg/dL (65-110); Sodium 128 mmol/L (137-145)
--- NOTE | 2022-06-11 12:32 | PC.NURSE ---
Enriquez catheter inserted at 1145.
--- NOTE | 2022-06-11 12:33 | PC.NURSE ---
This nurse still at bedside with patient at 1155. Patient still climbing out of bed, restless and agitated. MD made aware of patient behavior. Patient rolling around in bed yelling no, no, no, no , I got to get out of bed, I got to get out of bed, I got to get out of bed . Enriquez catheter in place, bedpan offered. Patient unable to be redirected. Patient still disoriented to person, place, time, and event. Hemodynamics remain stable.
--- NOTE | 2022-06-11 12:45 | PC.NURSE ---
Soft restraints initiated at 1150. Patient attempting to pull out IV access, trying to remove Enirquez, removing oxygen, climbing out of bed, unable to be re-directed and continues to pull and grab at staff. Three nurses with tech present at bedside.
--- NOTE | 2022-06-11 12:46 | PC.NURSE ---
New IV 22G placed in the right hand at 1220.
[2022-06-11] MEDS: BUDESONIDE RESPULE NEB 0.5 MG/2 ML AMP INHALATION ×2 (13:37→20:27)
[2022-06-11] MEDS: IPRATROPIUM BR 0.02% INH SOLN 0.5 MG/2.5 ML VIAL INHALATION ×2 (13:38→20:27)
[2022-06-11] MEDS: ALBUTEROL SULFATE NEB 2.5 MG/3 ML INH INHALATION ×2 (13:38→20:27)
[2022-06-11 14:52] LABS: Glucose Point of Care 159 mg/dl (65-105)
[2022-06-11 14:52] LABS: Glucose Point of Care 115 mg/dl (65-105)
[2022-06-11 14:52] LABS: Glucose Point of Care 146 mg/dl (65-105)
[2022-06-11] MEDS: dexmedeTOMIDine 400 MCG/100 ML 400 MCG/100 ML BAG IV CONT (15:00)
--- NOTE | 2022-06-11 15:20 | WPDNEURCNPN ---
Assessment and Plan Assessment and plan (1) Altered mental status: Code(s): R41.82 - Altered mental status, unspecified Status: Acute Plan encephalopathy With ongoing history of diabetes mellitus plan is to the supportive medical care Consult date: 06/16/22 HPI: José Edwards is a 77 year old male admitted to the hospital through the emergency room where he presented with the complaints of generalized weakness in addition to history of COVID infection diagnosed about 3 days ago with fever cough congestion and sore throat but he came back to the emergency room because of increasing lethargy poor p.o. intake and difficulties in breathing. He does have ongoing history of diabetes mellitus and hyperlipidemia also neuropathy initial exam in the emergency room revealed him to be tachypneic with rales at the lung bases also his vital signs revealed no abnormalities, he CBC was with leukocytosis with mild anemia, metabolic panel with evidence of diabetic ketoacidosis with beta hydroxybutyrate of eight point one three and lactic acid of 2.4 his blood sugar was 528, CT of the head was stable with mild nonspecific white matter changes, CT of the chest revealed no pulmonary embolus, diffuse lung disease consistent with a pulmonary edema superimposed pneumonia is small pleural effusion and mild mediastinal bilateral hilar lymphadenopathy in addition to left ventricular enlargement D-dimer was 1.94 patient has already been started on doxycycline ceftriaxone and Precedex in addition to his home medications PMFSH Past Medical History Medical History History of diabetes mellitus History of hyperlipidemia Neuropathy Social History Social History (Updated 06/10/22 @ 22:28 by Damián Ureña DO) Social History: Lives with Smoking status: Never smoker Alcohol intake: never Substance use: never Lack of Transportation: No Lack of Food: Never True Current Housing: I Have Housing Concerned About Future Housing: No Difficulty Paying Gas/Electric Bills: No Difficulty Paying for Meds: No Currently Unemployed: No Education: High School Diploma/GED Difficulty w/ Childcare or Family Care: No Spiritual care concerns: No Meds Home Medications and Allergies Home Medications Medication Instructions Recorded Confirmed Type citalopram 40 mg tablet 40 mg PO DAILY 06/10/22 06/10/22 History gabapentin 800 mg tablet 800 mg PO TID 06/10/22 06/10/22 History glipizide 10 mg tablet 10 mg PO BID 06/10/22 06/10/22 History metformin 1,000 mg tablet 1,000 mg PO BID 06/10/22 06/10/22 History simvastatin 80 mg tablet 80 mg PO DAILY 06/10/22 06/10/22 History Allergies Allergy/AdvReac Type Severity Reaction Status Date / Time No Known Allergies Allergy Verified 06/10/22 18:27 Vital Signs Vital Signs - 24 hr 06/10/22 17:27 06/10/22 18:38 06/10/22 18:25 Temperature 36.3 C L Pulse Rate 79 83 77 Respiratory Rate 16 34 H Blood Pressure 139/61 Pulse Oximetry 100 98 Oxygen Delivery Room Air Oxygen Flow Rate 06/10/22 18:30 06/10/22 18:34 06/10/22 18:45 Temperature Pulse Rate 78 77 114 H Respiratory Rate 39 H 38 H 36 H Blood Pressure 136/66 Pulse Oximetry 98 98 93 Oxygen Delivery Oxygen Flow Rate 06/10/22 18:46 06/10/22 21:42 06/10/22 22:12 Temperature 36.4 C L Pulse Rate 89 82 87 Respiratory Rate 35 H 20 24 H Blood Pressure 120/77 106/49 L 126/66 Pulse Oximetry 95 95 96 Oxygen Delivery Oxygen Flow Rate 06/10/22 22:55 06/11/22 00:00 06/11/22 00:00 Temperature 37.6 C H Pulse Rate 97 97 Respiratory Rate 20 20 Blood Pressure 110/50 L Pulse Oximetry 98 97 97 Oxygen Delivery Nasal Cannula Nasal Cannula Oxygen Flow Rate 2 2 06/11/22 00:00 06/11/22 02:00 06/11/22 02:00 Temperature Pulse Rate 96 88 86 Respiratory Rate 28 H Blood Pressure 113/55 L Pulse Oximetry 96 Oxygen Delivery
--- NOTE | 2022-06-11 15:24 | PC.NURSE ---
This nurse went to assess patient at 1450. Patient thrashing back and forth and kicking legs out of bed. Patient still in soft restraints yelling no, no, no, no . Patient disoriented to person and time. When asked place he does answer with [facility] . MD aware. nurse to continue to monitor.
[2022-06-11 15:37] LABS: Alveolar/Arterial O2 Gradient 232.5 mmHg; Base Excess ABG -8.2 mEq/l (+/-2.0); Fractional Inspired Oxygen 44 %; Oxygen Content ABG 15.5 %vol (16.0-22.0); Oxygen Saturation ABG 91.3 % (95.0-100.0); Oxyhemoglobin 89.1 % THb (90.0-100.0); PO2 ABG 56.9 mmHg (80.0-100.0); PO2 FiO2 Ratio Arterial Blood 1.29 %; Total Hemoglobin 12.4 g/dL (12.0-18.0); pH ABG 7.435 (7.350-7.450)
[2022-06-11 15:42] LABS: Modified Allen's Test Pass; PCO2 ABG 21.3 mmHg (35.0-45.0); Site Drawn LEFT RADIAL
[2022-06-11 15:43] LABS: Device NASAL CANNULA
--- NOTE | 2022-06-11 16:25 | PC.NURSE ---
Electrical Line Splicer notified and left voicemail for future patient teaching.
[2022-06-11] MEDS: SODIUM BICARBONATE 8.4% 50 MEQ/50 ML SYRINGE IV PUSH (16:45)
[2022-06-11 17:04] LABS: Lactic Acid Reflex 1.5 mmol/L (0.7-2.0)
[2022-06-11 17:23] LABS: Glucose Point of Care 219 mg/dl (65-105)
[2022-06-11] MEDS: cefTRIAXone 2 GM in SODIUM CHLORIDE 0.9% IV 100 ML 200 ML IVPB (18:06)
[2022-06-11] MEDS: INSULIN ASPART (*BKC) 100 UNITS/ML SUB-Q (18:07)
[2022-06-12] VITALS (38 sets, daily range): BP systolic 97–131; BP diastolic 61–75; PULSE 57–120; RESP 18–33; TEMP 36.1–38.6; O2SAT 97–100
--- NOTE | 2022-06-12 00:45 | PC.NURSE ---
Dr. Snider updated regarding Low urine despite Bladder Scan of 0 and flushing of urinary catheter.
[2022-06-12] MEDS: SODIUM CHLORIDE 0.9% IV 1,000 ML 50 ML IV CONT (00:50)
--- NOTE | 2022-06-12 00:58 | PC.NURSE ---
Patient still confused at this time. Patient states that he is not in the hospital and does not have Covid infection. Patient reminded that he is in a safe environment, he is safe and that his family knows where he is and what is going on.
[2022-06-12] MEDS: dexmedeTOMIDine 400 MCG/100 ML 400 MCG/100 ML BAG 7.75 MCG IV CONT ×2 (02:06→15:01)
--- NOTE | 2022-06-12 02:41 | PCRCNOTE ---
Patient refused his 0200 updraft treatment due to being agitated and confused. Next treatment to resume at 0800.
--- NOTE | 2022-06-12 03:18 | PC.NURSE ---
Patient believes that we are all here to cause him harm. He still states he does not have Covid nor did he have high blood sugar. He states he wants his oxygen off so he can . Patient alert to self at this time only. Patient reminded he is in the hospital, safe, free of harm, being treated for Covid as well him having high blood sugars and his family knows where he is at.
[2022-06-12 04:12] LABS: Basophils Percent Auto 0.3 % (0.2-1.2); Hematocrit 30.4 % (42.0-52.0); Hemoglobin 10.1 g/dL (14.0-18.0); Immature Granulocyte Absolute 0.11 K/mm3 (0.00-0.031); Immature Granulocyte Percent A 1.9 % (0-0.5); Lymphocytes Absolute Auto 1.15 K/mm3 (0.9-3.2); Lymphocytes Percent Auto 19.8 % (18.3-44.2); Mean Corpuscular HGB Conc 33.2 g/dl (32-36); Mean Corpuscular Hemoglobin 28.1 pg (26-34); Mean Corpuscular Volume 84.7 fl (80-100); Mean Platelet Volume 11.6 fl (7.4-10.4); Monocytes Absolute Auto 1.1 K/mm3 (0.1-0.6); Monocytes Percent Auto 18.6 % (2.6-8.5); Neutrophils Absolute Auto 3.5 K/mm3 (1.3-6.7); Neutrophils Percent Auto 59.4 % (45.5-73.1); Platelet Count Result 199 k/mm3 (150-375); Red Blood Count 3.59 M/mm3 (4.6-6.20); Red Cell Distribution Width 13.7 % (11.5-14.5); White Blood Count 5.8 K/mm3 (4.5-10.0)
[2022-06-12 04:24] LABS: Alanine Aminotransferase 34 U/L (6-50); Alkaline Phosphatase 63 U/L (38-126); Anion Gap 8 mmol/L (8-16); Aspartate Amino Transferase 57 U/L (17-59); Bilirubin,Total 0.4 mg/dL (0.2-1.3); Blood Urea Nitrogen 70 mg/dL (9-20); Calcium 7.4 mg/dL (8.4-10.2); Carbon Dioxide 21 mmol/L (22-30); Chloride 101 mmol/L (98-107); Estimated CRCL calculation 16 ml/min; Estimated Glomerular Filt Rate 17; Glucose 230 mg/dL (65-110); Magnesium 2.2 mg/dL (1.6-2.3); Potassium 4.9 mmol/L (3.4-5.0); Sodium 130 mmol/L (137-145)
[2022-06-12 04:28] LABS: Glucose Point of Care 206 mg/dl (65-105)
[2022-06-12 06:06] LABS: Alveolar/Arterial O2 Gradient 133.7 mmHg; Base Excess ABG -3.3 mEq/l (+/-2.0); Carboxyhemoglobin 0.3 % THb (0-2.0); Fractional Inspired Oxygen 35 %; HCO3 ABG 17.7 mEq/l (22.0-26.0); Methemoglobin ABG 0.3 %THb (0-1.5); Oxygen Content ABG 19.5 %vol (16.0-22.0); Oxygen Saturation ABG 97.6 % (95.0-100.0); PO2 ABG 89.1 mmHg (80.0-100.0); PO2 FiO2 Ratio Arterial Blood 2.55 %; Reduced Hemoglobin 3.4 %THb (0-5.0); Total Hemoglobin 14.4 g/dL (12.0-18.0)
[2022-06-12 06:08] LABS: pH ABG 7.505 (7.350-7.450)
[2022-06-12 06:09] LABS: Device HIGH FLOW THERAPY; Modified Allen's Test Pass; Site Drawn RIGHT RADIAL
[2022-06-12] MEDS: INSULIN ASPART (*BKC) 100 UNITS/ML SUB-Q ×4 (07:59→22:24)
[2022-06-12] MEDS: ENOXAPARIN 40 MG/0.4 ML SYRINGE SUB-Q (08:03)
[2022-06-12] MEDS: CITALOPRAM HYDROBROMIDE 20 MG TABLET 40 MG PO (08:04)
[2022-06-12] MEDS: GABAPENTIN 400 MG CAPSULE 800 MG PO (08:05)
[2022-06-12] MEDS: SIMVASTATIN 20 MG TABLET 80 MG PO (08:05)
[2022-06-12 08:07] LABS: Glucose Point of Care 236 mg/dl (65-105)
[2022-06-12] MEDS: ALBUTEROL SULFATE NEB 2.5 MG/3 ML INH INHALATION ×3 (08:19→21:18)
[2022-06-12] MEDS: IPRATROPIUM BR 0.02% INH SOLN 0.5 MG/2.5 ML VIAL INHALATION ×3 (08:19→21:18)
[2022-06-12] MEDS: BUDESONIDE RESPULE NEB 0.5 MG/2 ML AMP INHALATION ×2 (08:19→21:18)
[2022-06-12 09:00] LABS: Creatine Kinase 336 U/L (55-170)
[2022-06-12 09:04] LABS: Sodium Urine Random 37 meq/L
[2022-06-12 09:06] LABS: Creatinine Urine 164.6 mg/dL
[2022-06-12] MEDS: ALBUMIN HUMAN 25% 25 GM/100 ML 100 ML IVPB ×3 (09:06→17:23)
[2022-06-12] MEDS: DOBUTamine 250 MG/D5W 250 ML 250 MG/250 ML BAG 11.63 MG IV CONT ×2 (09:06→14:33)
[2022-06-12 09:44] LABS: Eosinophil Urine None Seen % (None Seen)
[2022-06-12] MEDS: INSULIN GLARGINE (*BKC) 100 UNITS/ML 30 UNITS SUB-Q (10:31)
[2022-06-12] MEDS: DOXYCYCLINE 100 MG/NS 100 ML 100 MG/100 ML BAG IVPB ×2 (10:35→22:41)
--- NOTE | 2022-06-12 11:20 | WPDINTPN ---
Progress Note: A&P Assessment and Plan (1) DKA (diabetic ketoacidosis): Qualifiers: Diabetes mellitus complication detail: without coma Diabetes mellitus type: type 2 Qualified Code(s): E11.10 - Type 2 diabetes mellitus with ketoacidosis without coma Code(s): E11.10 - Type 2 diabetes mellitus with ketoacidosis without coma Status: Acute Assessment and Plan: Patient presented with generalized weakness after being tested positive for COVID 3 days prior to admission -in the ER patient was found to have a blood sugar of 528, anion gap metabolic acidosis, elevated beta hydroxybutyrate, urine ketones, hemoglobin A1c of 11.8. Patient was diagnosed with DKA, given 1 L IV fluid bolus and started on insulin infusion. -this morning anion gap has closed, patient's blood sugars are much better, will transition to long acting insulin and sliding scale insulin with Accu-Cheks -will stop IV fluids -start diabetic diet (2) 2019 novel coronavirus-infected pneumonia (NCIP): Code(s): U07.1 - COVID-19; J12.82 - Pneumonia due to coronavirus disease 2019 Status: Acute Assessment and Plan: Patient with COVID-19, he has been tested 3 days prior to admission, also was positive for SARS-CoV-2 PCR in the ER on 06/10. -patient is currently on 1-2 L nasal cannula -06/10: CTA chest was done for elevated D-dimers, did not show any pulmonary embolism, diffuse lung disease consistent with moderate pulmonary edema without or with superimposed pneumonia -we do not have Paxlovid, oral medication here in the pharmacy -patient is at risk given his diabetes, age for developing moderate to severe disease. -creatinine clearance is borderline, Remdesivir is contraindicated -continue supportive care -added ceftriaxone and doxycycline for possible pneumonia -added bronchodilators, -continue benzonatate for cough (3) Elevated brain natriuretic peptide (BNP) level: Code(s): R79.89 - Other specified abnormal findings of blood chemistry Status: Acute Assessment and Plan: chest x-ray does show diffuse infiltrates could be related to pulmonary edema, proBNP was > 54176 on admission -echocardiogram has been ordered to for cardiac structural and functional assessment (4) Hyponatremia: Code(s): E87.1 - Hypo-osmolality and hyponatremia Status: Acute Assessment and Plan: Could be related to pseudohyponatremia due to elevated blood sugars, could be related to acute kidney injury -unknown baseline -gradually improving, will continue to monitor (5) Acute kidney injury: Code(s): N17.9 - Acute kidney failure, unspecified Status: Acute Assessment and Plan: Acute kidney injury, creatinine of 2.10 on admission (baseline from 03/2022 is 1.6) -will give additional IV fluid bolus -continue to monitor urine output, electrolytes and renal function -encourage p.o. intake Plan DVT prophylaxis: Lovenox Stress ulcer prophylaxis: Not indicated Nutrition: Will start diabetic diet Code Status: DNR/DNI Critical Care Time Spent: 48 minutes Due to a high probability of clinically significant, life threatening deterioration, the patient required my highest level of preparedness to intervene emergently and I personally spent this critical care time directly and personally managing the patient. This critical care time included obtaining a history; examining the patient; pulse oximetry; ordering and review of studies; arranging urgent treatment with development of a management plan; evaluation of patient's response to treatment; frequent reassessment; and discussions with other providers. It was exclusive of separately billable procedures and treating other patients and teaching time. Please see Assessment and Plan section and the rest of the note for further information on patient assessment and treatment This dictation may have been done utilizing a voice recognition system. Attempts have been made to salvatore
--- NOTE | 2022-06-12 11:22 | PM.CNCAR ---
Assessment and Plan Assessment and plan (1) Cardiomyopathy: Code(s): I42.9 - Cardiomyopathy, unspecified Status: Acute Plan 77-year-old man with very concerning situation PE with recent documentation of coronavirus infection presents to the hospital with altered mental status. He is very poor left ventricular systolic function on echo and I believe this could be an acute process as based on his echo and chest x-ray his LV is not significantly dilated. This could represent a significant acute COVID myocarditis. Very concerning that he has rapidly worsening renal function probably related to low cardiac output. In this situation we really cannot initiate standard guideline directed medical therapy for his cardiomyopathy given his hemodynamic situation in rapidly worsening renal function. It is appropriate to try to support him with some dobutamine which is already been started. I will have some troponin sampled and we will consider steroids if this is elevated. Prognosis in this situation he does have an acute myocarditis is very poor and given their DNR/ DNI wishes transfer to a tertiary center is something that will not be considered as advanced support measures are not appropriate in that setting. Chandrakant Conway MD [facility] History of Present Illness History of Present Illness Consult date/time: 06/12/22 11:22 Reason For Visit: DKA, COVID 19 pneumonia Narrative: This is a 77-year-old man I am seeing at the request of the hospitalist's today because of significant cardiomyopathy with LV systolic dysfunction. He is unknown to me prior to this consultation and is being seen in the ICU room 11. He was admitted to the hospital the night before last when he was brought to the emergency room by his family complaining about generalized weakness lethargy and he had tested positive for coronavirus several days before this at home. Apparently his mental status and state of her orientation was declining and for those reasons he was brought to the hospital. He was found to be acidemic in a state of ketoacidosis. He does have a history of diabetes and was a admitted to the ICU. The patient was not reporting any symptom of chest pain pressure or heaviness her electrocardiogram does not show any evidence of acute injury. An echocardiogram was done yesterday which demonstrates minimal LV enlargement with very low ejection fraction and no significant valvular pathology. His chest x-ray on admission did not show any evidence of cardiomegaly. He now has some pulmonary congestion visible on today's chest x-ray. Because of worsening renal function he has been placed on some dobutamine. Creatinine on presentation was 1.6 it is now 3.6 with BUN in the 70s. Patient has been made a do not intubate / /do not resuscitation status after discussions with his family. In this setting I am seeing him in consultation. His only home medications included glipizide metformin and simvastatin. Review of Systems Review of Systems: ROS unobtainable: Yes unobtainable due to medical condition and unobtainable due to mental status PMF Past Medical History Medical History History of diabetes mellitus History of hyperlipidemia Neuropathy Social History Social History (Updated 06/10/22 @ 22:28 by Damián Ureña DO) Social History: Lives with Smoking status: Never smoker Alcohol intake: never Substance use: never Lack of Transportation: No Lack of Food: Never True Current Housing: I Have Housing Concerned About Future Housing: No Difficulty Paying Gas/Electric Bills: No Difficulty Paying for Meds: No Currently Unemployed: No Education: High School Diploma/GED Difficulty w/ Childcare or Family Care: No Spiritual care concerns: No Meds Home Medications and Allergies Home Medications Medication Instructions Recorded Confirmed Type citalopra
--- NOTE | 2022-06-12 11:38 | PM.IMPN ---
Progress Note: A&P Assessment and Plan (1) DKA (diabetic ketoacidosis): Qualifiers: Diabetes mellitus complication detail: without coma Diabetes mellitus type: type 2 Qualified Code(s): E11.10 - Type 2 diabetes mellitus with ketoacidosis without coma Code(s): E11.10 - Type 2 diabetes mellitus with ketoacidosis without coma Status: Acute Assessment and Plan: Patient presented with generalized weakness after being tested positive for COVID 3 days prior to admission -in the ER patient was found to have a blood sugar of 528, anion gap metabolic acidosis, elevated beta hydroxybutyrate, urine ketones, hemoglobin A1c of 11.8. Patient was diagnosed with DKA, given 1 L IV fluid bolus and started on insulin infusion. -this morning anion gap has closed, patient's blood sugars are much better, will transition to long acting insulin and sliding scale insulin with Accu-Cheks -will stop IV fluids -start diabetic diet (2) 2019 novel coronavirus-infected pneumonia ([facility]): Code(s): U07.1 - COVID-19; J12.82 - Pneumonia due to coronavirus disease 2019 Status: Acute Assessment and Plan: Patient with COVID-19, he has been tested 3 days prior to admission, also was positive for SARS-CoV-2 PCR in the ER on 06/10. -patient is currently on 1-2 L nasal cannula -we do not have Paxlovid -patient is at risk given his diabetes, age for developing moderate to severe disease. -creatinine clearance is borderline, Remdesivir is contraindicated -continue supportive care -added ceftriaxone and doxycycline for possible pneumonia (3) Elevated brain natriuretic peptide (BNP) level: Code(s): R79.89 - Other specified abnormal findings of blood chemistry Status: Acute Assessment and Plan: chest x-ray does show diffuse infiltrates could be related to pulmonary edema, proBNP was > 25712 on admission -echocardiogram has been ordered (4) Hyponatremia: Code(s): E87.1 - Hypo-osmolality and hyponatremia Status: Acute Assessment and Plan: Could be related to pseudohyponatremia due to elevated blood sugars, could be related to acute kidney injury -unknown baseline -gradually improving, will continue to monitor -asymptomatic (5) Acute kidney injury: Code(s): N17.9 - Acute kidney failure, unspecified Status: Acute Assessment and Plan: Acute kidney injury, creatinine of 2.10 on admission (baseline from 03/2022 is 1.6) -will give additional IV fluid bolus -continue to monitor urine output, electrolytes and renal function -encourage p.o. intake Subjective Date/time seen: 06/12/22 11:38 No acute events overnight Exam Narrative: General: Patient is awake, feeling cold HEENT:? Pupils are equal and reactive, sclera is clear, moist oral mucosa Neck:? Supple Respiratory:? Coarse breath sounds bilaterally, decreased at bases, adequate air entry. Patient is making a lot of noise, so difficult it has been a little difficult to hear his breath sounds. No obvious wheezing was heard Cardiac:? S1-S2 is normal, sinus rhythm, Abdomen:? Soft, nontender, nondistended, normoactive bowel sounds Extremities:? No edema, palpable pedal pulses Neuro:? Patient is awake, oriented to place and was able to tell me his date of otherwise could not answer the orientation questions. He is able to follow simple commands and answers a few questions. He continues to say ok and has to be redirected Skin:? No lesions noted Psych:? Unable to assess at this time Objective Data Vital Signs Vital Signs: Vital Signs - 24 hr 06/11/22 12:00 06/11/22 12:00 06/11/22 12:15 Temperature 101.4 F H Pulse Rate 109 H 123 H Respiratory Rate 34 H 34 H 33 H Blood Pressure 136/64 Pulse Oximetry 90 90 90 Oxygen Delivery Nasal Cannula Oxygen Flow Rate 4 Fraction of Inspired Oxygen 06/11/22 13:38 06/11/22 13:49 06/11/22 15:00 Temperature Pulse Rate 99 98 113 H Respiratory Rate 30 H 35 H
--- NOTE | 2022-06-12 11:40 | PM.CNNEP ---
Assessment and Plan Assessment and plan (1) Acute kidney injury: Code(s): N17.9 - Acute kidney failure, unspecified Status: Acute Assessment and Plan: significant decline in the last 24 hours suspect multifactorial etiology: prerenal factors (usually the case with DKA) DKA/hyperglycemia depressed EF/cardiomyopathy contrast exposure (CTA on admission) evaluation to date renal ultrasound pending urine electrolytes prerenal [due to volume depletion versus depressed EF/cardiomyopathy(?)] urine eosinophils negative CPK elevated but not enough to affect kidney function limited use of IVFs with depressed EF/cardiomyopathy agree with IV albumin for volume expansion reasonable to attempt dobutamine to help renal hypoperfusion as well 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 follow repeat labs and UOP (2) Stage 3b chronic kidney disease: Code(s): N18.32 - Chronic kidney disease, stage 3b Status: Chronic Assessment and Plan: baseline creatinine 1.6mg/dl in March 2022 no previous labs to compare to presumably due to poorly controlled diabetes (3) Hyponatremia: Code(s): E87.1 - Hypo-osmolality and hyponatremia Status: Acute Assessment and Plan: unclear how acute or chronic this is (no previous labs to compare to) several risk factors: hyperglycemia (and hence pseudohyponatremia) SSRI use (on citalopram) cardiomyopathy COVID pneumonia appear relatively stable follow trend if no improvement with current interventions, will proceed with further testing (4) DKA (diabetic ketoacidosis): Qualifiers: Diabetes mellitus complication detail: without coma Diabetes mellitus type: type 2 Qualified Code(s): E11.10 - Type 2 diabetes mellitus with ketoacidosis without coma Code(s): E11.10 - Type 2 diabetes mellitus with ketoacidosis without coma Status: Acute Assessment and Plan: presumably triggered by COVID infection elevated blood sugar in the 500s associated with gap acidosis, elevated beta hydroxybutyrate and urine ketones in the ER s/p IVF and insulin gtt transitioning to Lantus and SSI (now that gap is closed) follow accuchecks glycemic control (5) Cardiomyopathy: Code(s): I42.9 - Cardiomyopathy, unspecified Status: Acute Assessment and Plan: new finding given evidence to date likely explains findings of pulmonary edema on CXR; diffuse infiltrates presumably related to COVID Echo (06/11/22) with EF 20 - 25% Cardiology following with recommendations noted trial of dobutamine started concerns that this may be acute COVID myocarditis -- Cardiology considering trial of steroids (6) Pneumonia due to COVID-19 virus: Code(s): U07.1 - COVID-19; J12.82 - Pneumonia due to coronavirus disease 2019 Status: Acute Assessment and Plan: tested positive days prior to admission as well as day of admission (by testing in ER) requiring supplemental oxygen at this CTA results noted -- no PE but pulmonary edema with/without pneumonia on antibiotics for possible bacterial pneumonia bronchodilators and antitussive therapy paxlovid and remdesivir contraindicated given current GFR (7) Altered mental status: Code(s): R41.82 - Altered mental status, unspecified Status: Acute Assessment and Plan: likely related to acute illness: hyperglycemia/DKA COVID-19 infection pneumonia cardiomyopathy decreased brain perfusion Head CT results noted Neurology following may need possible brain MRI follow mentation Long extensive discussion (> 20 minutes) with the patient regarding his worsening kidney disease/renal function and my concern that if current interventions do not improve things, he may require renal replacement therapy/dialysis. Unfortunately, given the patient's current mental status, I am unsure how much he understood me. Discussed case
--- NOTE | 2022-06-12 11:40 | P.CONNP_ITS ---
Assessment and Plan Assessment and plan (1) Acute kidney injury: Code(s): N17.9 - Acute kidney failure, unspecified Status: Acute Assessment and Plan: * significant decline in the last 24 hours * suspect multifactorial etiology: * prerenal factors (usually the case with DKA) * DKA/hyperglycemia * depressed EF/cardiomyopathy * contrast exposure (CTA on admission) * evaluation to date * renal ultrasound pending * urine electrolytes prerenal [due to volume depletion versus depressed EF/cardiomyopathy(?)] * urine eosinophils negative * CPK elevated but not enough to affect kidney function * limited use of IVFs with depressed EF/cardiomyopathy * agree with IV albumin for volume expansion * reasonable to attempt dobutamine to help renal hypoperfusion as well * 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 * follow repeat labs and UOP (2) Stage 3b chronic kidney disease: Code(s): N18.32 - Chronic kidney disease, stage 3b Status: Chronic Assessment and Plan: * baseline creatinine 1.6mg/dl in March 2022 * no previous labs to compare to * presumably due to poorly controlled diabetes (3) Hyponatremia: Code(s): E87.1 - Hypo-osmolality and hyponatremia Status: Acute Assessment and Plan: * unclear how acute or chronic this is (no previous labs to compare to) * several risk factors: * hyperglycemia (and hence pseudohyponatremia) * SSRI use (on citalopram) * cardiomyopathy * COVID * pneumonia * appear relatively stable * follow trend * if no improvement with current interventions, will proceed with further testing (4) DKA (diabetic ketoacidosis): Qualifiers: Diabetes mellitus complication detail: without coma Diabetes mellitus type: type 2 Qualified Code(s): E11.10 - Type 2 diabetes mellitus with ketoacidosis without coma Code(s): E11.10 - Type 2 diabetes mellitus with ketoacidosis without coma Status: Acute Assessment and Plan: * presumably triggered by COVID infection * elevated blood sugar in the 500s associated with gap acidosis, elevated beta hydroxybutyrate and urine ketones in the ER * s/p IVF and insulin gtt * transitioning to Lantus and SSI (now that gap is closed) * follow accuchecks * glycemic control (5) Cardiomyopathy: Code(s): I42.9 - Cardiomyopathy, unspecified Status: Acute Assessment and Plan: * new finding given evidence to date * likely explains findings of pulmonary edema on CXR; diffuse infiltrates presumably related to COVID * Echo (06/11/22) with EF 20 - 25% * Cardiology following with recommendations noted * trial of dobutamine started * concerns that this may be acute COVID myocarditis -- Cardiology considering trial of steroids (6) Pneumonia due to COVID-19 virus: Code(s): U07.1 - COVID-19; J12.82 - Pneumonia due to coronavirus disease 2018 Status: Acute Assessment and Plan: * tested positive days prior to admission as well as day of admission (by testing in ER) * requiring supplemental oxygen at this * CTA results noted -- no PE but pulmonary edema with/without pneumonia * on antibiotics for possible bacterial pneumonia * bronchodilators and antitussive therapy * paxlovid and remdesivir contraindicated given current GFR (7) Altered mental status: Code(s): R41.82 - Altered mental status, unspecified Status: Acute Assessment and Plan: * likely related to acute illness: * hyperglycemia/DKA * COVID-19 infection
--- NOTE | 2022-06-12 11:43 | WPDINTPN ---
Progress Note: A&P Assessment and Plan (1) Cardiomyopathy: Code(s): I42.9 - Cardiomyopathy, unspecified Status: Acute Assessment and Plan: chest x-ray does show diffuse infiltrates could be related to pulmonary edema, proBNP was > 42859 on admission -06/11/2022 echocardiogram: Showed LV systolic function severely reduced, EF 20-25% with grade 1 diastolic dysfunction. No other valve abnormalities -appreciate Cardiology evaluation and recommendations, -checking troponins, -concern for acute COVID myocarditis, if troponins are elevated then will consider steroids -started on dobutamine this morning to increase cardiac output and end organ perfusion, cardiology is agreeable with the plan (2) Acute kidney injury: Code(s): N17.9 - Acute kidney failure, unspecified Status: Acute Assessment and Plan: Acute kidney injury, creatinine of 2.10 on admission (baseline from 03/2022 is 1.6) -likely due to dehydration DKA, cardiomyopathy EF of 20 - 25%, patient also received contrast for CTA on admission so could have contrast induced nephropathy -patient given cautious IV fluids for elevated BNP -creatinine has worsened since admission, 3.60 this morning -patient has severe cardiomyopathy EF 20-25% -started patient on dobutamine to increase cardiac output and renal perfusion -renal ultrasound has been ordered -urine lytes not reflective of prerenal picture -urine eosinophils are normal -CK level slightly elevated, not reflective of rhabdomyolysis -continue to monitor urine output, electrolytes and renal function -encourage p.o. intake -added albumin volume expansion and renal perfusion (3) 2019 novel coronavirus-infected pneumonia ([facility]): Code(s): U07.1 - COVID-19; J12.82 - Pneumonia due to coronavirus disease 2019 Status: Acute Assessment and Plan: Patient with COVID-19, he has been tested 3 days prior to admission, also was positive for SARS-CoV-2 PCR in the ER on 06/10. -patient is currently on 1-2 L nasal cannula -06/10:? CTA chest was done for elevated D-dimers, did not show any pulmonary embolism, diffuse lung disease consistent with moderate pulmonary edema without or with superimposed pneumonia -we do not have Paxlovid, oral medication here in the pharmacy -patient is at risk given his diabetes, age for developing moderate to severe disease. -due to his decreased creatinine clearance, Remdesivir is contraindicated -continue supportive care -continue ceftriaxone and doxycycline for possible pneumonia -continue bronchodilators and Pulmicort -continue benzonatate for cough (4) DKA (diabetic ketoacidosis): Qualifiers: Diabetes mellitus complication detail: without coma Diabetes mellitus type: type 2 Qualified Code(s): E11.10 - Type 2 diabetes mellitus with ketoacidosis without coma Code(s): E11.10 - Type 2 diabetes mellitus with ketoacidosis without coma Status: Acute Assessment and Plan: Patient presented with generalized weakness after being tested positive for COVID 3 days prior to admission -in the ER patient was found to have a blood sugar of 528, anion gap metabolic acidosis, elevated beta hydroxybutyrate, urine ketones, hemoglobin A1c of 11.8.? Patient was diagnosed with DKA, given 1 L IV fluid bolus and started on insulin infusion. -this morning anion gap has closed, patient's blood sugars are much better, will transition to long acting insulin and sliding scale insulin with Accu-Cheks -IV fluids were discontinued, -patient was started on diabetic diet -continue Lantus and Accu-Cheks with sliding scale insulin (5) Hyponatremia: Code(s): E87.1 - Hypo-osmolality and hyponatremia Status: Acute Assessment and Plan: Could be related to pseudohyponatremia due to elevated blood sugars, could be related to acute kidney injury, heart failure -unknown baseline -gradually improving, will continue to monitor (6) Encephalopathy: Code(s): G93.40 - Encep
[2022-06-12 12:07] LABS: Glucose Point of Care 308 mg/dl (65-105)
[2022-06-12] MEDS: BENZONATATE 100 MG CAPSULE 200 MG PO (14:00)
[2022-06-12] MEDS: INSULIN GLARGINE (*BKC) 100 UNITS/ML 10 UNITS SUB-Q (14:27)
[2022-06-12] MEDS: CENTRAL LINE FLUSH 10 ML IV PUSH ×2 (14:27→20:13)
--- NOTE | 2022-06-12 15:53 | PC.NURSE ---
Spoke with [facility] transfer center at 1553. No bed available at this time. Patient on waitlist.
[2022-06-12] MEDS: FUROSEMIDE INJ 40 MG/4 ML VIAL IV PUSH (16:01)
[2022-06-12] MEDS: cefTRIAXone 2 GM in SODIUM CHLORIDE 0.9% IV 100 ML 200 ML IVPB (17:23)
[2022-06-12 19:05] LABS: Glucose Point of Care 320 mg/dl (65-105)
[2022-06-12 19:05] LABS: Glucose Point of Care 285 mg/dl (65-105)
--- NOTE | 2022-06-12 21:35 | PC.NURSE ---
Report called to JAMI Rizo at [facility] at 2134. All questions answered. Updated that [facility] ETA is 30 minutes from the start of report. Will call again when patient is on the way.
[2022-06-12 22:09] LABS: Glucose Point of Care 270 mg/dl (65-105)
[2022-06-13] VITALS: BP 120/72; PULSE 101; RESP 29; TEMP 38.4; O2SAT 99
[2022-06-13] MEDS: ALBUMIN HUMAN 25% 25 GM/100 ML 100 ML IVPB (00:05)
[2022-06-13 00:43] VITALS: PULSE 101; RESP 27
[2022-06-13] MEDS: dexmedeTOMIDine 400 MCG/100 ML 400 MCG/100 ML BAG 13.56 MCG IV CONT (01:08)
[2022-06-13 02:00] VITALS: BP 135/81; PULSE 92; RESP 25; TEMP 37.9; O2SAT 99
[2022-06-13 02:05] VITALS: PULSE 78; RESP 25
[2022-06-13] MEDS: IPRATROPIUM BR 0.02% INH SOLN 0.5 MG/2.5 ML VIAL INHALATION (02:05)
[2022-06-13] MEDS: ALBUTEROL SULFATE NEB 2.5 MG/3 ML INH INHALATION (02:05)
[2022-06-13 04:00] VITALS: BP 146/84; PULSE 91; RESP 23; TEMP 37.2; O2SAT 96
[2022-06-13 05:06] LABS: Basophils Percent Auto 0.2 % (0.2-1.2); Hematocrit 25.9 % (42.0-52.0); Hemoglobin 8.8 g/dL (14.0-18.0); Immature Granulocyte Absolute 0.09 K/mm3 (0.00-0.031); Immature Granulocyte Percent A 1.9 % (0-0.5); Lymphocytes Absolute Auto 0.54 K/mm3 (0.9-3.2); Lymphocytes Percent Auto 11.6 % (18.3-44.2); Mean Corpuscular Hemoglobin 28.2 pg (26-34); Mean Platelet Volume 11.6 fl (7.4-10.4); Monocytes Absolute Auto 0.5 K/mm3 (0.1-0.6); Monocytes Percent Auto 10.1 % (2.6-8.5); Neutrophils Absolute Auto 3.5 K/mm3 (1.3-6.7); Neutrophils Percent Auto 76.2 % (45.5-73.1); Platelet Count Result 191 k/mm3 (150-375); Red Blood Count 3.12 M/mm3 (4.6-6.20); White Blood Count 4.7 K/mm3 (4.5-10.0)
[2022-06-13 05:31] LABS: Alanine Aminotransferase 35 U/L (6-50); Albumin Level 3.8 g/dL (3.5-5.1); Alkaline Phosphatase 74 U/L (38-126); Anion Gap 14 mmol/L (8-16); Aspartate Amino Transferase 71 U/L (17-59); Bilirubin,Total 0.6 mg/dL (0.2-1.3); Blood Urea Nitrogen 76 mg/dL (9-20); Calcium 6.9 mg/dL (8.4-10.2); Carbon Dioxide 17 mmol/L (22-30); Chloride 100 mmol/L (98-107); Estimated CRCL calculation 11 ml/min; Estimated Glomerular Filt Rate 11; Glucose 231 mg/dL (65-110); Potassium 4.3 mmol/L (3.4-5.0); Sodium 131 mmol/L (137-145)
[2022-06-13 05:57] LABS: Hepatitis B Surface Antigen Negative (Negative)
[2022-06-13] MEDS: CENTRAL LINE FLUSH 10 ML IV PUSH (05:57)
[2022-06-13 06:14] LABS: Hepatitis B Surface Anti Res Negative
--- NOTE | 2022-06-13 06:28 | PC.NURSE ---
Pt on the way to [facility] [id number] at 0624. All belongings including wallet sent with the pt. Report given to EMS and update given to charge nurse Clarence at [facility].
[2022-06-16 03:04] LABS: Hepatitis B Core Ab Total Nonreactive (Nonreactive)
[2022-06-16 14:43] LABS: Chloride Rand Ur 44 mmol/L (32-290); Chloride/Creatinine Rand Ur 30 (23-275); Creatinine Random Urine 145 mg/dL (20-320)
--- NOTE | 2022-07-08 12:15 | PM.TDS ---
Transfer Discharge Sum: Prov Provider Date of admission: 06/12/22 13:36 Primary care physician: Naila Luis, Admitting clinician: Jose Roberto Ureña DO Consults: 06/10/22 21:05 Consult to Physician Routine Comment: Consulting Provider: Jacobo Snider Reason for consultation: DKA Has provider been notified: Yes 06/10/22 21:06 Consult to Dietitian Routine Reason for Consult:: DKA admission 06/11/22 15:01 Consult to Physician Routine Comment: Consulting Provider: Chandrakant Conway product analyst/MD group to consult: Cardiology Reason for consultation: Cardiomyopathy Has provider been notified: Yes Consult to Physician Routine Comment: Consulting Provider: Wade Solorio product analyst/MD group to consult: Neurology Reason for consultation: Encephalopathy Has provider been notified: Yes 06/12/22 08:03 Consult to Physician Routine Comment: Spoke with and notified him of consult Consulting Provider: Radha Velarde product analyst/MD group to consult: Nephrology Reason for consultation: DEEP, Has provider been notified: Yes DS: Admitting Diagnosis Discharge Date 06/13/22 Admitting Diagnosis dm covid chf acute systolic DS: Discharge Diagnosis Discharge Diagnosis (1) Cardiomyopathy: Code(s): I42.9 - Cardiomyopathy, unspecified Status: Acute Assessment and Plan: chest x-ray does show diffuse infiltrates could be related to pulmonary edema, proBNP was > 55003 on admission -06/11/2022 echocardiogram: Showed LV systolic function severely reduced, EF 20-25% with grade 1 diastolic dysfunction. No other valve abnormalities -appreciate Cardiology evaluation and recommendations, -checking troponins, -concern for acute COVID myocarditis, if troponins are elevated then will consider steroids -started on dobutamine this morning to increase cardiac output and end organ perfusion, cardiology is agreeable with the plan (2) Acute kidney injury: Code(s): N17.9 - Acute kidney failure, unspecified Status: Acute Assessment and Plan: Acute kidney injury, creatinine of 2.10 on admission (baseline from 03/2022 is 1.6) -likely due to dehydration DKA, cardiomyopathy EF of 20 - 25%, patient also received contrast for CTA on admission so could have contrast induced nephropathy -patient given cautious IV fluids for elevated BNP -creatinine has worsened since admission, 3.60 this morning -patient has severe cardiomyopathy EF 20-25% -started patient on dobutamine to increase cardiac output and renal perfusion -renal ultrasound has been ordered -urine lytes not reflective of prerenal picture -urine eosinophils are normal -CK level slightly elevated, not reflective of rhabdomyolysis -continue to monitor urine output, electrolytes and renal function -encourage p.o. intake -added albumin volume expansion and renal perfusion (3) 2019 novel coronavirus-infected pneumonia ([facility]): Code(s): U07.1 - COVID-19; J12.82 - Pneumonia due to coronavirus disease 2019 Status: Acute Assessment and Plan: Patient with COVID-19, he has been tested 3 days prior to admission, also was positive for SARS-CoV-2 PCR in the ER on 06/10. -patient is currently on 1-2 L nasal cannula -06/10:? CTA chest was done for elevated D-dimers, did not show any pulmonary embolism, diffuse lung disease consistent with moderate pulmonary edema without or with superimposed pneumonia -we do not have Paxlovid, oral medication here in the pharmacy -patient is at risk given his diabetes, age for developing moderate to severe disease. -due to his decreased creatinine clearance, Remdesivir is contraindicated -continue supportive care -continue ceftriaxone and doxycycline for possible pneumonia -continue bronchodilators and Pulmicort -continue benzonatate for cough (4) DKA (diabetic ketoacidosis): Qualifiers: Diabetes mellitus complication detail: without coma Diabetes mellitus type: t
== END 2022-06-13 06:24 | disposition short-term general hospital (02) | DRG 177 ==
LOC: ANHED 20:45 → ANHICU 21:34
PROVIDERS: Internal Medicine; Internal Medicine Nephrology; Physician Assistant; Admitting Provider Student in an Organized Health Care Education/Training Program; Emergency Provider Emergency Medicine; PCP Family Medicine; Visit Provider Chiropractor
DX: U07.1 COVID-19 (principal); E11.10 Type 2 diabetes mellitus with ketoacidosis without coma; J12.82 Pneumonia due to coronavirus disease 2019; N17.9 Acute kidney failure, unspecified; E87.1 Hypo-osmolality and hyponatremia; G93.40 Encephalopathy, unspecified; I42.9 Cardiomyopathy, unspecified; I50.40 Unspecified combined systolic (congestive) and diastolic (congestive) heart failure; N18.32 Chronic kidney disease, stage 3b; E87.5 Hyperkalemia; E78.5 Hyperlipidemia, unspecified; E11.40 Type 2 diabetes mellitus with diabetic neuropathy, unspecified; Z28.310 Unvaccinated for COVID-19; Z79.84 Long term (current) use of oral hypoglycemic drugs
CPT/HCPCS: 36415; 36569; 36600; 51701; 70450; 71045; 71046; 71275; 76775; 80048; 80053; 81001; 82010; 82140; 82375; 82436; 82550; 82570; 82805; 82948; 83036; 83050; 83605; 83735; 83880; 84100; 84133; 84300; 84439; 84443; 84484; 85025; 85380; 85610; 85730; 85999; 86140; 86704; 86706; 87340; 87636; 93005; 94640; 96361; 96365; 96366; 96367; 96368; 96372; 96375; 96376; 97162; 97166; 99285; A9270; C1751; C8929; G0378; J0131; J0696; J1250; J1650; J1815; J1940; J2060; J3480; J7030; J7040; P9047; Q9957; Q9967